=== PATIENT | male | born 1990 | race African-American/Black ===

== ENCOUNTER 2023-04-07 19:27 | Emergency (ER) | payer SELFPAY ==
[~2023-04-07] VITALS: Ht 177 cm; Wt 87.0 kg
[2023-04-07 19:35] VITALS: BP 131/89
--- NOTE | 2023-04-07 19:58 | ED Integumentary General ---
General Chief Complaint: Skin/Wound Problems Stated Complaint: BUMP ON EYE Source: patient Exam Limitations: no limitations History of Present Illness Date Seen by Provider: April 07, 2023 Time Seen by Provider: 19:55 Initial Comments Patient is a 33-year-old male who presents the ED with a potential abscess to the left lateral face. Patient states he noticed a small pea size "lump" several months ago. Noted increased pain yesterday with increased size today. Surrounding redness and swelling around the cyst. Previous similar cyst versus abscess drain to his left medial thigh. Denies of any injury, fever, chills. Concern for infected cyst. Denies of any active drainage. Allergies and Home Medications Allergies Coded Allergies: No Known Drug Allergies (Unverified , 04/07/23) Patient Home Medication List Home Medication List Reviewed: Yes Cephalexin (Cephalexin) 500 Mg Tablet, 500 MG PO QID Prescribed by: ABBE GOMEZ on 04/07/232025 Review of Systems Review of Systems Constitutional: No chills, No diaphoresis EENTM: No ear pain, No blurred vision Respiratory: No cough Cardiovascular: No chest pain Gastrointestinal: No abdominal pain, No diarrhea Genitourinary: No decreased output, No discharge Musculoskeletal: No back pain, No joint pain Skin: change in color All Other Systems Reviewed Negative Unless Noted: Yes Past Qqwcbio-Nzlkis-Sctnov Hx Patient Social History Tobacco Use?: No Use of E-Cig and/or Vaping dev: No Substance use?: No Alcohol Use?: No Pt feels they are or have been: No Past Medical History Surgery/Hospitalization HX: KNEE SURGERY X2 Physical Exam Vital Signs Vital Signs - First Documented 04/07/23 19:35 Temp 36.7 Pulse 103 Resp 20 B/P (MAP) 131/89 (103) Pulse Ox 97 O2 Delivery Room Air Capillary Refill : General Appearance: WD/WN, no apparent distress HEENT: PERRL/EOMI, normal ENT inspection, TMs normal, pharynx normal Neck: non-tender, full range of motion, supple Cardiovascular: regular rate, rhythm, no edema, no gallop, no JVD Respiratory: chest non-tender, lungs clear, normal breath sounds, no respiratory distress Gastrointestinal: normal bowel sounds, non tender, soft Back: normal inspection, no CVA tenderness Extremities: normal range of motion, non-tender, normal inspection, no pedal edema 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 Surrounding redness and swelling.) Skin Problem Character: abscess (Pea-sized lateral left eye. Localized erythema) Procedures/Interventions I&D : Blade Size: 11 I & D Procedure: betadine prep Progress Pea size cyst to the lateral left eye. Free movable. Small amount of purulent and bloody drainage. Progress/Results/Core Measures Results/Orders My Orders Orders - MACK HE Cephalexin Capsule (Keflex Capsule) (04/07/23 20:24) Vital Signs/I&O 04/07/23 19:35 Temp 36.7 Pulse 103 Resp 20 B/P (MAP) 131/89 (103) Pulse Ox 97 O2 Delivery Room Air Departure Communication (PCP) Reviewed previous ER visits, H&P, lab testing. Differential diagnosis of sebaceous cyst, infected sebaceous cyst, abscess, facial cellulitis. Patient has a free movable pea-sized cyst to lateral of the left eye. concerning for infected cyst. Increasing pain over the past 2 days with increase in size. Reports a cyst there for several months. Patient states he had 1 drain medial left eye in the past. Consent to perform incision and drainage. Local 1% lidocaine was used. Made a small incision with 11 inch blade. Small to moderate amount of purulent drainage. Procedure documented note. Area was left open. Continue allowing drainage. Neosporin was applied topical. Will discharge with Keflex. Patient Was given a oral dose here. Concern for infected cyst. Continue allowing drainage. We will have patient follow-up with general surgery. May need a elliptical incision. If increasing redness, swelling or pain to return back to ED. Impression Primary Impression: Abscess Disposition: 01 HOME, SELF-CARE Condition: Stable Departure-Patient Inst. Decision time for Depature: 20:24 Referrals: [facility]/VADIM NICOLE DO NO,LOCAL PHYSICIAN (PCP) Primary Care Physician Patient Instructions: Abscess Incision and Drainage Add. Discharge Instructions: If increased size, redness or pain to return back to ED for incision and drainage. Recommend follow-up with general surgery for further evaluation that may require intervention. Continue taking antibiotic as prescribed. Topical Neosporin twice a day for the next 5 days All discharge instructions reviewed with patient and/or family. Voiced understanding. Scripts Cephalexin (Cephalexin) 500 Mg Tablet 500 MG PO QID for 7 Days, #28 TAB Prov: MACK HE 04/07/23 MACK HE April 07, 2023 19:58
[2023-04-07] MEDS ORDERED: CEPHALEXIN 250 MG (KEFLEX) CAP PO STA (20:24)
[2023-04-07] MEDS ORDERED: CEPH500T PO (20:26)
== END 2023-04-07 20:30 | disposition home or self-care (01) ==
LOC: ER 19:33
DX: H44.002 Unspecified purulent endophthalmitis, left eye (principal)
CPT/HCPCS: 10060

== ENCOUNTER 2023-10-06 10:52 | Emergency (ER) | payer SELFPAY ==
[~2023-10-06] VITALS: Ht 177 cm; Wt 86.0 kg
[~2023-10-06 10:52] MED LIST: CEPH500T PO
[2023-10-06 10:57] VITALS: BP 148/115
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
--- NOTE | 2023-10-06 11:25 | Diagnostic Imaging Report ---
EXAMINATION: Left hand radiograph EXAM DATE: 10/06/2023 11:16 AM COMPARISON: None available. HISTORY: Hand pain TECHNIQUE: 3 views FINDINGS: There is an acute, oblique minimally displaced fracture of the mid left 4th metacarpal best seen on the oblique view. There is sclerotic and lytic change as well as cortical irregularity seen within the distal ulna. Joint spaces otherwise preserved. The soft tissues are normal. IMPRESSION: 1. Acute, minimally displaced oblique fracture of the mid left 4th metacarpal. 2. Cortical irregularity, lytic and sclerotic change of the distal ulna. This is indeterminate and could be further evaluated with MRI in the nonemergent setting. Dictated by: Dictated on workstation # [id number]
== END 2023-10-06 11:41 | disposition home or self-care (01) ==
LOC: EDUNIT# 10:52 → ER 10:55
DX: S62.395A Other fracture of fourth metacarpal bone, left hand, initial encounter for closed fracture (principal); V49.9XXA Car occupant (driver) (passenger) injured in unspecified traffic accident, initial encounter; Y92.410 Unspecified street and highway as the place of occurrence of the external cause
CPT/HCPCS: 29125; 73130